=== PATIENT | male | born 1950 | race Caucasian/White ===

== ENCOUNTER 2021-04-11 12:30 | Outpatient (CLI) | payer OTHER | END 2021-04-11 12:39 | disposition home or self-care (01) | LOC: TOM 12:30 | PROVIDERS: ATTEND Urology | DX: N20.0 Calculus of kidney (principal); N28.89 Other specified disorders of kidney and ureter; F52.21 Male erectile disorder ==

== ENCOUNTER 2021-05-06 14:12 | Outpatient (CLI) | payer OTHER | END 2021-05-06 14:19 | disposition home or self-care (01) | LOC: RAD 14:12 | PROVIDERS: ATTEND Urology | DX: N20.0 Calculus of kidney (principal); I11.9 Hypertensive heart disease without heart failure ==

== ENCOUNTER 2022-06-16 12:33 | Outpatient (CLI) | payer OTHER | END 2022-06-16 12:37 | disposition home or self-care (01) | LOC: SONOGRAMA 12:33 | DX: N21.0 Calculus in bladder (principal) ==

== ENCOUNTER 2022-10-07 13:34 | Outpatient (CLI) | payer OTHER | END 2022-10-07 13:39 | disposition home or self-care (01) | LOC: SONOGRAMA 13:34 | PROVIDERS: ATTEND Urology | DX: N40.1 Benign prostatic hyperplasia with lower urinary tract symptoms (principal) ==

== ENCOUNTER 2023-01-21 11:45 | Outpatient (CLI) | payer OTHER | END 2023-01-21 11:54 | disposition home or self-care (01) | LOC: TOM 11:45 | PROVIDERS: ATTEND Urology | DX: C61 Malignant neoplasm of prostate (principal) ==

== ENCOUNTER 2023-02-18 07:55 | Outpatient (CLI) | payer OTHER | END 2023-02-18 07:56 | disposition home or self-care (01) | LOC: NUCLEAR 07:55 | PROVIDERS: ATTEND Urology | DX: C61 Malignant neoplasm of prostate (principal) | CPT/HCPCS: 78306; A9503 ==

== ENCOUNTER 2024-08-22 10:23 | Outpatient (CLI) | payer OTHER | END 2024-08-22 10:27 | disposition home or self-care (01) | LOC: RAD 10:23 | PROVIDERS: ATTEND Urology | DX: S23.41XA Sprain of ribs, initial encounter (principal) ==